=== PATIENT | male | born 1950 | race Asian ===

== ENCOUNTER 2020-04-20 09:26 | Day surgery (SDC) | payer OTHER, SELFPAY | END 2020-04-20 11:00 | disposition home or self-care (01) | LOC: MDS 09:26 → MFCC 09:26 → MDS 11:00 | PROVIDERS: ATTEND Internal Medicine Gastroenterology | DX: Z12.11 Encounter for screening for malignant neoplasm of colon (principal); Z11.59 Encounter for screening for other viral diseases; Z53.8 Procedure and treatment not carried out for other reasons | CPT/HCPCS: U0003-CS ==

== ENCOUNTER 2020-06-01 07:12 | Day surgery (SDC) | payer OTHER, SELFPAY ==
[~2020-06-01] VITALS: Ht 152.4 cm; Wt 64.9 kg
[2020-06-01] MEDS ORDERED: MIDAZOLAM 5 MG/5 ML VIAL ONE (08:50)
[2020-06-01] MEDS ORDERED: fentaNYL citrate 0.05 MG/ML VIAL ONE (08:50)
[2020-06-01] MEDS ORDERED: LIDOCAINE 2% 100 MG/5 ML UJET TP ONE (08:51)
[2020-06-01] MEDS ORDERED: MIDAZOLAM 2 MG/2 ML VIAL IVP ONE (10:40)
[2020-06-01] MEDS ORDERED: fentaNYL citrate 0.05 MG/ML VIAL IVP ONE (10:40)
== END 2020-06-01 10:10 | disposition home or self-care (01) ==
LOC: MDS 07:12 → MFCC 07:12 → MDS 10:10
PROVIDERS: ATTEND Internal Medicine Gastroenterology
DX: Z12.11 Encounter for screening for malignant neoplasm of colon (principal); D12.0 Benign neoplasm of cecum; I10 Essential (primary) hypertension; Z79.899 Other long term (current) drug therapy; Z20.828 Contact with and (suspected) exposure to other viral communicable diseases; Z98.890 Other specified postprocedural states
CPT/HCPCS: 45385; 88305; J2250; J3010; U0003